=== PATIENT | male | born 1970 | race Caucasian/White ===

== ENCOUNTER → 2018-01-21 10:10 | Outpatient (CLI) | payer MEDICAID, SELFPAY | PROVIDERS: PCP Nurse Practitioner Family; Visit Provider Family Medicine | DX: R69 Illness, unspecified (principal) | CPT/HCPCS: 36415; 80053 ==

== ENCOUNTER → 2018-01-22 18:16 | Outpatient (REF) | payer MEDICAID, SELFPAY ==
[2018-01-22 18:50] LABS: ALT 41 U/L (12-78); AST 24 U/L (15-37); Albumin 3.9 g/dL (3.4-5.0); Alkaline Phosphatase 87 U/L (46-116); Anion Gap 9.8 mmol/L (3-11); BUN 10 mg/dL (7-18); Bilirubin, Total 0.4 mg/dL (0.2-1.0); CO2 28.2 mmol/L (21.0-32.0); CREATININE 0.94 mg/dL (0.70-1.30); Calcium 8.8 mg/dL (8.5-10.1); Chloride 104 mmol/L (98-107); Glucose 104 mg/dL (70-100); Potassium 4.1 mmol/L (3.5-5.1); Sodium 142 mmol/L (136-145)
== END ==
LOC: NCHCN 18:16
PROVIDERS: PCP Nurse Practitioner Family; Visit Provider Family Medicine
DX: R60.0 Localized edema (principal)
CPT/HCPCS: 80053

== ENCOUNTER 2018-05-04 18:48 | Outpatient (REF) | payer MEDICAID, SELFPAY ==
[2018-05-04 19:38] LABS: Absolute Basophil Count 0.02 k/cumm (0.0-0.2); Absolute Eosinophil Count 0.13 k/cumm (0.0-0.7); Absolute Lymphocyte Count 1.53 k/cumm (1.2-3.4); Absolute Monocyte Count 0.46 k/cumm (0.11-0.7); Basophils % 0.4; Eosinophils % 2.7; HCT 39.1 % (40.0-50.0); HGB 13.4 g/dL (13.5-17.5); Lymphocytes % 31.6; Mean Corp. HGB Concentration 34.3 g/dL (32.0-36.0); Mean Corpuscular Hemoglobin 30.4 pg (27.0-33.0); Mean Corpuscular Volume 88.7 fL (80-95); Mean Platelet Volume 11.1 fL (8.0-11.0); Monocytes % 9.5; Neutrophils % 55.8; Platelet Count 270 x1000/uL (130-400); RBC 4.41 m/cumm (4.50-6.00); RBC Distribution Width 12.9 % (11.8-14.1); White Blood Cell Count 4.84 k/cumm (4.4-10.8)
[2018-05-04 19:49] LABS: Anion Gap 8.8 mmol/L (3-11); BUN 15 mg/dL (7-18); CO2 28.2 mmol/L (21.0-32.0); CREATININE 0.85 mg/dL (0.70-1.30); Calcium 9.2 mg/dL (8.5-10.1); Chloride 104 mmol/L (98-107); Glucose 118 mg/dL (70-100); Potassium 3.7 mmol/L (3.5-5.1); Sodium 141 mmol/L (136-145); TSH 1.57 uIU/mL (0.358-3.74)
== END 2018-05-04 19:08 ==
LOC: NCHCN 18:48
PROVIDERS: PCP Nurse Practitioner Family; Visit Provider Nurse Practitioner Family
DX: R42 Dizziness and giddiness (principal)
CPT/HCPCS: 80048; 84443; 85025

== ENCOUNTER 2018-06-18 18:07 | Outpatient (REF) | payer MEDICAID, SELFPAY ==
[2018-06-18 19:02] LABS: Iron 97 ug/dL (50-175); Total Iron Binding Capacity 302 ug/dL (250-450); Transferrin Sat 32 % (20-55)
[2018-06-18 19:15] LABS: Calcium 9.2 mg/dL (8.5-10.1); Ferritin 219 ng/mL (8-388)
[2018-06-21 11:11] LABS: Transferrin 240 mg/dL (201-352)
== END 2018-06-18 18:27 ==
LOC: NCHCN 18:07
PROVIDERS: PCP Nurse Practitioner; Visit Provider Nurse Practitioner Family
DX: R89.9 Unspecified abnormal finding in specimens from other organs, systems and tissues (principal); M62.838 Other muscle spasm
CPT/HCPCS: 82310; 82728; 83540; 83550; 84466

== ENCOUNTER 2018-09-19 17:36 | Emergency (ER) | payer MEDICAID, SELFPAY ==
[2018-09-19 17:50] VITALS: BP 140/93; PULSE 60; RESP 16; TEMP 36.7; O2SAT 97
--- NOTE | 2018-09-19 18:06 | W.ED.GENAD ---
Discharge Plan Disposition Patient Disposition: HOME Condition: Good Discharge Details Chief Complaint: RashLesion Clinical Impression: Cellulitis of anterior lower leg Primary Care Provider: Tamy Kimble ED Provider: Dhruv Quinn Home Meds and New Rx's Prescriptions: New sulfamethoxazole-trimethoprim [Bactrim DS] 800-160 mg tablet 1 tab PO BID 10 Days Qty: 14 RF: 0 Continued fluticasone propion-salmeterol [Advair Diskus] 1 EACH blister with device 1 puff Inhalation BID RF: 0 albuterol sulfate [ProAir HFA] 8.5 GM HFA aerosol inhaler 2 puff Inhalation Q4H PRN RF: 0 epinephrine [EpiPen 2-Reece] 0.3 MG/0.3 ML auto-injector 0.3 mg IM PRN Qty: 2 RF: 0 ibuprofen 800 MG tablet 800 mg PO TID Qty: 270 RF: 3 montelukast [Singulair] 10 MG tablet 10 mg PO DAILY Qty: 90 RF: 3 loratadine 10 MG tablet 10 mg PO DAILY Qty: 90 RF: 3 acetaminophen [Mapap Extra Strength] 500 MG tablet 2 tab PO TID Qty: 0 RF: 0 cetirizine 10 mg Tablet 10 mg PO DAILY RF: 0 cyclobenzaprine 10 mg Tablet 10 mg PO TID PRNRF: 0 C-Pap RF: 0 Discharge Instructions Instructions: Cellulitis (ED) Additional Instructions: Elevate the leg to reduce swelling and discomfort. Take antibiotics as prescribed. No alcohol with this medication. Return for rapidly spreading erythema, involvement of fever or chills, or any other acute concerns. Please follow-up with regular doctor if not improving in 5 days time Medical Decision Making 48-year-old male presents with a day of right pretibial erythema that began after he scratched the area of dry skin. He does not have a fever and is otherwise well-appearing. Consistent with a developing cellulitis. In order to cover for community acquired MRSA I will place him on a course of Bactrim. He understands homecare as well as return precautions. HPI General Mode of arrival: ambulatory. Date/Time Provider Initiated Documentation: 09/19/18 17:53. Limitations to Documentation: no limitations. Information obtained by: patient. History of Present Illness 48 year old M presents to the emergency department with the chief complaint of Right leg pretibial rash since yesterday, described as mild, Quality is described as dull, and is localized to the left and lower extremity. Patient reports no radiation. Patient started experiencing this hour(s) No relieving factors improve symptom(s), No exacerbating factors reported . Patient notes no other symptoms.; denies fever/chills. Patient did receive the following treatments prior to arrival, none Related Data Home Medications Medication Instructions Recorded Confirmed albuterol sulfate [ProAir HFA] 2 puff INHALATION Q4H PRN inhaler 05/25/15 09/19/18 fluticasone propion-salmeterol 1 puff INHALATION BID disk 05/25/15 09/19/18 [Advair Diskus] epinephrine [EpiPen 2-Reece] 0.3 mg IM PRN #2 pen 06/18/15 09/19/18 ibuprofen 800 mg PO TID #270 tab-cap 05/12/16 09/19/18 montelukast [Singulair] 10 mg PO DAILY #90 tab-cap 08/05/16 09/19/18 loratadine 10 mg PO DAILY #90 tab-cap 12/19/16 09/19/18 acetaminophen [Mapap Extra 2 tab PO TID #0 07/02/17 09/19/18 Strength] C-Pap 09/19/18 09/19/18 cetirizine 10 mg PO DAILY 09/19/18 09/19/18 cyclobenzaprine 10 mg PO TID PRN 09/19/18 09/19/18 sulfamethoxazole-trimethoprim 1 tab PO BID 10 Days #14 tab 09/19/18 [Bactrim DS] Previous Rx's Medication Instructions Recorded acetaminophen [Mapap Extra 2 tab PO TID #0 07/02/17 Strength] sulfamethoxazole-trimethoprim 1 tab PO BID 10 Days #14 tab 09/19/18 [Bactrim DS] Allergies Allergy/AdvReac Type Severity Reaction Status Date / Time blueberry Allergy Severe Anaphylaxsi Unverified 09/19/18 17:58 s animal dander AdvReac Unverified 09/19/18 17:58 pepporoni/chorizo Allergy Severe Anaphylaxsi Uncoded 09/19/18 17:58 s dust AdvReac Uncoded 09/19/18 17:58 pollens AdvReac Uncoded 09/19/18 17:58 General Stated Complaint: RashLesion IVONNE: 4 Review of Systems Review of Systems 8 systems reviewed and otherwise - [facility], [facility] Medical History Sleep apnea (Acute) Allergic rhinitis Arthritis Asthma Congenital pes planus Hypertriglyceridemia Obesity Surgical History Partial left medial meniscectomy (02/06/16) r ear surgery Family History Mother COPD (chronic obstructive pulmonary disease) Father Alcohol abuse Tobacco use disorder Allergic rhinitis Sister Mental disorder Son TBI (traumatic brain injury) Autism Son No problems noted. Son Autism Daughter No problems noted. Daughter No problems noted. Other Substance abuse Social History Smoking/Tobacco Use Status: Never Alcohol Intake: never Drug use: Occasionally Substance use type: marijuana Do you feel safe in your relationship?: Yes Exam Narrative Exam Narrative: GEN: awake, alert, oriented 3. Pleasant, well groomed, interactive. HEAD: Normocephalic, atraumatic ENT: Mucous membranes moist, oropharynx unremarkable, External ear exam unremarkable EYES: PERRL, EOMI NECK: Full ROM, no PATTI, no menigismus CHEST/RESP: Nontender, clear to auscultation bilateral, no wheeze/rhonchi/rales CARDIOVASCULAR: RRR, no murmur, rub sherrie. 2+ Rad pulse bilateral ABDOMEN: Soft, nontender, no mass. +Bowel sounds EXT: Full ROM, trace pretibial edema bilaterally. Dried skin bilaterally. The right pretibial area has approximately 5 x 15 cm area of blanching warm and erythematous skin Neuro: Grossly normal neurologic exam, conversant, interactive. Psych: Speech fluent, thoughts congruent, affect normal Course Vital Signs Temperature 36.7 C 09/19/18 17:50 Pulse 60 09/19/18 17:50 Respiratory Rate 16 09/19/18 17:50 Blood Pressure 140/93 H 09/19/18 17:50 Pulse Oximetry 97 09/19/18 17:50 Temperature 36.7 C 09/19/18 17:50 Temperature Source Skin 09/19/18 17:50 Pulse 60 09/19/18 17:50 Respiratory Rate 16 09/19/18 17:50 Respiratory Effort Non-Labored 09/19/18 18:02 Blood Pressure 140/93 H 09/19/18 17:50 Blood Pressure Position Sitting 09/19/18 17:50 Pulse Oximetry 97 09/19/18 17:50 Oxygen Delivery Method Room Air 09/19/18 17:50 Oxygen Flow Rate 0 09/19/18 17:50 Pain Level 1 09/19/18 17:50
--- NOTE | 2018-09-19 18:09 | ED.GENADUL_ITS ---
Discharge Plan Disposition Patient Disposition: HOME Condition: Good Discharge Details Chief Complaint: RashLesion Clinical Impression: Cellulitis of anterior lower leg Primary Care Provider: Tamy Kimble ED Provider: Dhruv Quinn Home Meds and New Rx's Prescriptions: New sulfamethoxazole-trimethoprim [Bactrim DS] 800-160 mg tablet 1 tab PO BID 10 Days Qty: 14 RF: 0 Continued fluticasone propion-salmeterol [Advair Diskus] 1 EACH blister with device 1 puff Inhalation BID RF: 0 albuterol sulfate [ProAir HFA] 8.5 GM HFA aerosol inhaler 2 puff Inhalation Q4H PRN RF: 0 epinephrine [EpiPen 2-Reece] 0.3 MG/0.3 ML auto-injector 0.3 mg IM PRN Qty: 2 RF: 0 ibuprofen 800 MG tablet 800 mg PO TID Qty: 270 RF: 3 montelukast [Singulair] 10 MG tablet 10 mg PO DAILY Qty: 90 RF: 3 loratadine 10 MG tablet 10 mg PO DAILY Qty: 90 RF: 3 acetaminophen [Mapap Extra Strength] 500 MG tablet 2 tab PO TID Qty: 0 RF: 0 cetirizine 10 mg Tablet 10 mg PO DAILY RF: 0 cyclobenzaprine 10 mg Tablet 10 mg PO TID PRNRF: 0 C-Pap RF: 0 Discharge Instructions Instructions: Cellulitis (ED) Additional Instructions: Elevate the leg to reduce swelling and discomfort. Take antibiotics as prescribed. No alcohol with this medication. Return for rapidly spreading erythema, involvement of fever or chills, or any other acute concerns. Please follow-up with regular doctor if not improving in 5 days time Medical Decision Making 48-year-old male presents with a day of right pretibial erythema that began after he scratched the area of dry skin. He does not have a fever and is otherwise well-appearing. Consistent with a developing cellulitis. In order to cover for community acquired MRSA I will place him on a course of Bactrim. He understands homecare as well as return precautions. HPI General Mode of arrival: ambulatory . Date/Time Provider Initiated Documentation: 09/19/18 17:53 . Limitations to Documentation: no limitations . Information obtained by: patient . History of Present Illness 48 year old M presents to the emergency department with the chief complaint of Right leg pretibial rash since yesterday, described as mild, Quality is described as dull, and is localized to the left and lower extremity. Patient reports no radiation. Patient started experiencing this hour(s) No relieving factors improve symptom(s), No exacerbating factors reported . Patient notes no other symptoms.; denies fever/chills. Patient did receive the following t reatments prior to arrival, none Related Data Home Medications Medication Instructions Recorded Confirmed albuterol sulfate [ProAir HFA] 2 puff INHALATION Q4H PRN inhaler 05/25/15 09/19/18 fluticasone propion-salmeterol 1 puff INHALATION BID disk 05/25/15 09/19/18 [Advair Diskus] epinephrine [EpiPen 2-Reece] 0.3 mg IM PRN #2 pen 06/18/15 09/19/18 ibuprofen 800 mg PO TID #270 tab-cap 05/12/16 09/19/18 montelukast [Singulair] 10 mg PO DAILY #90 tab-cap 08/05/16 09/19/18 loratadine 10 mg PO DAILY #90 tab-cap 12/19/16 09/19/18 acetaminophen [Mapap Extra 2 tab PO TID #0 07/02/17 09/19/18 Strength] C-Pap 09/19/18 09/19/18 cetirizine 10 mg PO DAILY 09/19/18 09/19/18 cyclobenzaprine 10 mg PO TID PRN 09/19/18 09/19/18 sulfamethoxazole-trimethoprim 1 tab PO BID 10 Days #14 tab 09/19/18 [Bactrim DS] Previous Rx's Medication Instructions Recorded acetaminophen [Mapap Extra 2 tab PO TID #0 07/02/17 Strength] sulfamethoxazole-trimethoprim 1 tab PO BID 10 Days #14 tab 09/19/18 [Bactrim DS] Allergies Allergy/AdvReac Type Severity Reaction Status Date / Time blueberry Allergy Severe Anaphylaxsi Unverified 09/19/18 17:58 s animal dander AdvReac Unverified 09/19/18 17:58 pepporoni/chorizo Allergy Severe Anaphylaxsi Uncoded 09/19/18 17:58 s dust AdvReac Uncoded 09/19/18 17:58 pollens AdvReac Uncoded 09/19/18 17:58 General Stated Complaint: RashLesion IVONNE: 4 Review of Systems Review of Systems 8 systems reviewed and otherwise - [facility] Medical History Sleep apnea (Acute) Allergic rhinitis Arthritis Asthma Congenital pes planus Hypertriglyceridemia Obesity Surgical History Partial left medial meniscectomy (02/06/16) r ear surgery Family History Mother COPD (chronic obstructive pulmonary disease) Father Alcohol abuse Tobacco use disorder Allergic rhinitis Sister Mental disorder Son TBI (traumatic brain injury) Autism Son No problems noted. Son Autism Daughter No problems noted. Daughter No problems noted. Other Substance abuse Social History Smoking/Tobacco Use Status: Never Alcohol Intake: never Drug use: Occasionally Substance use type: marijuana Do you feel safe in your relationship?: Yes Exam Narrative Exam Narrative: GEN: awake, alert, oriented 3. Pleasant, well groomed, interactive. HEAD: Normocephalic, atraumatic ENT: Mucous membranes moist, oropharynx unremarkable, External ear exam unremarkable EYES: PERRL, EOMI NECK: Full ROM, no PATTI, no menigismus CHEST/RESP: Nontender, clear to auscultation bilateral, no wheeze/rhonchi/rales CARDIOVASCULAR: RRR, no murmur, rub sherrie. 2+ Rad pulse bilateral ABDOMEN: Soft, nontender, no mass. +Bowel sounds EXT: Full ROM, trace pretibial edema bilaterally. Dried skin bilaterally. The right pretibial area has approximately 5 x 15 cm area of blanching warm and erythematous skin Neuro: Grossly normal neurologic exam, conversant, interactive. Psych: Speech fluent, thoughts congruent, affect normal Course Vital Signs Temperature 36.7 C 09/19/18 17:50 Pulse 60 09/19/18 17:50 Respiratory Rate 16 09/19/18 17:50 Blood Pressure 140/93 H 09/19/18 17:50 Pulse Oximetry 97 09/19/18 17:50 Temperature 36.7 C 09/19/18 17:50 Temperature Source Skin 09/19/18 17:50 Pulse 60 09/19/18 17:50 Respiratory Rate 16 09/19/18 17:50 Respiratory Effort Non-Labored 09/19/18 18:02 Blood Pressure 140/93 H 09/19/18 17:50 Blood Pressure Position Sitting 09/19/18 17:50 Pulse Oximetry 97 09/19/18 17:50 Oxygen Delivery Method Room Air 09/19/18 17:50 Oxygen Flow Rate 0 09/19/18 17:50 Pain Level 1 09/19/18 17:50
[2018-09-19] MEDS: Sulfameth/Trimeth DS TAB 1 TAB PO ×2 (18:20)
== END 2018-09-19 18:24 | disposition home or self-care (01) ==
PROVIDERS: Emergency Provider Emergency Medicine; PCP Nurse Practitioner Family
DX: L03.115 Cellulitis of right lower limb (principal)
CPT/HCPCS: 99283

== ENCOUNTER 2018-11-20 22:08 | Emergency (ER) | payer MEDICAID, SELFPAY ==
[2018-11-20 22:16] VITALS: BP 138/97; PULSE 74; RESP 18; TEMP 36.6; O2SAT 97
--- NOTE | 2018-11-20 22:36 | ED.GENADUL_ITS ---
Discharge Plan Disposition Patient Disposition: HOME Condition: Good Discharge Details Chief Complaint: Cellulitis Clinical Impression: Bug bite, Rash Primary Care Provider: Tamy Kimble ED Provider: Ethan Garcia Home Meds and New Rx's Prescriptions: New cephalexin [Keflex] 500 mg capsule 500 mg PO QID 7 Days Qty: 28 RF: 0 No Action fluticasone propion-salmeterol [Advair Diskus] 1 EACH blister with device 1 puff Inhalation BID RF: 0 albuterol sulfate [ProAir HFA] 8.5 GM HFA aerosol inhaler 2 puff Inhalation Q4H PRN RF: 0 epinephrine [EpiPen 2-Reece] 0.3 MG/0.3 ML auto-injector 0.3 mg IM PRN Qty: 2 RF: 0 ibuprofen 800 MG tablet 800 mg PO TID Qty: 270 RF: 3 montelukast [Singulair] 10 MG tablet 10 mg PO DAILY Qty: 90 RF: 3 loratadine 10 MG tablet 10 mg PO DAILY Qty: 90 RF: 3 acetaminophen [Mapap Extra Strength] 500 MG tablet 2 tab PO TID Qty: 0 RF: 0 cetirizine 10 mg Tablet 10 mg PO DAILY RF: 0 cyclobenzaprine 10 mg Tablet 10 mg PO TID PRNRF: 0 C-Pap RF: 0 Discharge Instructions Instructions: Acute Rash (ED) Additional Instructions: Please apply the Benadryl ointment 2-3 times per day. If you notice no improvement with this or you find that the rash is spreading and worsening, please start taking the Keflex. If you notice any worsening of your symptoms, or any new symptoms such as vomiting, diarrhea, fever, chills, shortness of breath, chest pain, numbness, weakness, or fainting , please return immediately to the emergency department for reevaluation. Please follow up with your primary care provider as soon as possible for reassessment and reevaluation. As always, it was a pleasure participating in your medical care today. Referrals: Tamy Kimble [Primary Care Provider] - Medical Decision Making This is a pleasant 48-year-old male who presents with a small rash on his right lower bailey that occurred after a bug bite. Mild redness, well demarcated, not raised. Notably itchy. Diameter is roughly 5 x 3 cm. No signs of abscess or infection. No systemic symptoms whatsoever. Signs and symptoms appear consistent with a mild allergic reaction. We will give topical Benadryl cream here. Because it is the weekend, and the patient has had a history of cellulitis after infections like this, we will give her prescription for Keflex. Recommended to the patient that he hold off on utilizing this unless his symptoms do not improve with the Benadryl or they worsen over time. We discussed red flags which to return the patient understands. I have extensively reviewed the treatment plan and discharge instructions with the patient and their family. I have addressed all patient concerns at this time. The patient and family was made aware of what symptoms to monitor for that would warrant a return to the emergency department. Discussed the plan with the patient and family, they demonstrate verbal understanding and agreement with our assessment and plan at this time. HPI General Date/Time Provider Initiated Documentation: 11/20/18 22:25 . HPI Narrative: This is a 48-year-old male with a past medical history of asthma, reactive airway disease, congenital pes planus, and high cholesterol who presents today for evaluation of rash. Patient states that today he was outdoors and got multiple bug bites. He noticed on his right lower bailey that he developed a small red rash that is notably itchy. He denies fever or chills. He denies any other associated complaints. He denies any history of long trips or surgeries or procedures. He denies any trauma. No other modifying factors. Related Data Home Medications Medication Instructions Recorded Confirmed albuterol sulfate [ProAir HFA] 2 puff INHALATION Q4H PRN inhaler 05/25/15 11/20/18 fluticasone propion-salmeterol 1 puff INHALATION BID disk 05/25/15 11/20/18 [Advair Diskus] epinephrine [EpiPen 2-Reece] 0.3 mg IM PRN #2 pen 06/18/15 11/20/18 ibuprofen 800 mg PO TID #270 tab-cap 05/12/16 11/20/18 montelukast [Singulair] 10 mg PO DAILY #90 tab-cap 08/05/16 11/20/18 loratadine 10 mg PO DAILY #90 tab-cap 12/19/16 11/20/18 acetaminophen [Mapap Extra 2 tab PO TID #0 07/02/17 11/20/18 Strength] C-Pap 09/19/18 11/20/18 cetirizine 10 mg PO DAILY 09/19/18 11/20/18 cyclobenzaprine 10 mg PO TID PRN 09/19/18 11/20/18 cephalexin [Keflex] 500 mg PO QID 7 Days #28 cap 11/20/18 Previous Rx's Medication Instructions Recorded acetaminophen [Mapap Extra 2 tab PO TID #0 07/02/17 Strength] cephalexin [Keflex] 500 mg PO QID 7 Days #28 cap 11/20/18 Allergies Allergy/AdvReac Type Severity Reaction Status Date / Time blueberry Allergy Severe Anaphylaxsi Unverified 09/19/18 17:58 s animal dander AdvReac Unverified 09/19/18 17:58 pepporoni/chorizo Allergy Severe Anaphylaxsi Uncoded 09/19/18 17:58 s dust AdvReac Uncoded 09/19/18 17:58 pollens AdvReac Uncoded 09/19/18 17:58 General Stated Complaint: Cellulitis IVONNE: 4 Review of Systems Review of Systems All systems reviewed & are unremarkable except as noted in HPI and below PFSH Social History Smoking/Tobacco Use Status: Never Alcohol Intake: never Drug use: Occasionally Substance use type: marijuana Do you feel safe in your relationship?: Yes Exam Narrative Exam Narrative: 1.Const: Well-nourished, Well-developed, appearing stated age 2.Eyes: PERRL, no conjunctival injection, and symmetrical lids. 3.ENT: Atraumatic external nose and ears. Moist MM. Neck: Symmetric, trachea midline, No thyromegaly. 4.CVS: +S1/S2, No murmurs or gallops. Peripheral pulses 2+ and equal in all extremities. Brisk capillary refill in all extremities. 5.RESP: Unlabored respiratory effort. Clear to auscultation bilaterally. No wheezes rales or rhonchi 6.GI: Soft, Nontender/Nondistended, No hepatosplenomegaly. No guarding or rebound. 7.MSK: Normocephalic/Atraumatic, Extremities w/o deformity or ttp No cyanosis or clubbing, Normal movement of all extremities 8.Skin: Warm, Dry. There is a small area of erythema on the patient's right lower bailey. It is serpiginous in nature, diameter is roughly 5 cm in width, and 3 cm in height. Notably itchy. No significant calf tenderness, no bleeding or abscess. No other abnormalities. 9.Neuro: sole sewer hand II-XII grossly intact. Sensation grossly intact, no focal neurologic deficits. 10.Psych: (AAO) x3. Appropriate mood and affect Course Vital Signs Temperature 36.6 C 11/20/18 22:16 Pulse 74 11/20/18 22:16 Respiratory Rate 18 11/20/18 22:16 Blood Pressure 138/97 H 11/20/18 22:16 Pulse Oximetry 97 11/20/18 22:16 Temperature 36.6 C 11/20/18 22:16 Temperature Source Temporal Artery Scan 11/20/18 22:16 Pulse 74 11/20/18 22:16 Respiratory Rate 18 11/20/18 22:16 Respiratory Effort 11/20/18 22:16 Blood Pressure 138/97 H 11/20/18 22:16 Blood Pressure Position Sitting 11/20/18 22:16 Pulse Oximetry 97 11/20/18 22:16 Oxygen Delivery Method Room Air 11/20/18 22:16 Oxygen Flow Rate 0 11/20/18 22:16
[2018-11-20] MEDS: diphenhydrAMINE /ZINC ACET CR 30 GM TUBE TP (22:38)
== END 2018-11-20 23:53 | disposition home or self-care (01) ==
PROVIDERS: Emergency Provider Student in an Organized Health Care Education/Training Program; PCP Nurse Practitioner Family
DX: S80.861A Insect bite (nonvenomous), right lower leg, initial encounter (principal); W57.XXXA Bitten or stung by nonvenomous insect and other nonvenomous arthropods, initial encounter
CPT/HCPCS: 99283

== ENCOUNTER 2019-08-01 21:32 | Outpatient (REF) | payer MEDICAID, SELFPAY ==
[2019-08-01 22:10] LABS: Abs Immature Grans 0.02 k/cumm (0.0-0.09); Absolute Basophil Count 0.07 k/cumm (0.0-0.2); Absolute Eosinophil Count 0.27 k/cumm (0.0-0.7); Absolute Lymphocyte Count 1.74 k/cumm (1.2-3.4); Absolute Monocyte Count 0.76 k/cumm (0.11-0.7); Absolute Neutrophil Count 3.25 k/cumm (1.2-6.7); Basophils % 1.1; Eosinophils % 4.4; HCT 40.8 % (40.0-50.0); HGB 13.8 g/dL (13.5-17.5); Immature Grans % 0.3 %; Lymphocytes % 28.5; Mean Corp. HGB Concentration 33.8 g/dL (32.0-36.0); Mean Corpuscular Hemoglobin 29.8 pg (27.0-33.0); Mean Corpuscular Volume 88.1 fL (80-95); Mean Platelet Volume 10.8 fL (8.0-11.0); Monocytes % 12.4; Neutrophils % 53.3; Platelet Count 319 x1000/uL (130-400); RBC 4.63 m/cumm (4.50-6.00); RBC Distribution Width 13.1 % (11.8-14.1); White Blood Cell Count 6.11 k/cumm (4.4-10.8)
[2019-08-01 22:19] LABS: ALT 42 U/L (16-63); AST 23 U/L (15-37); Albumin 4.1 g/dL (3.4-5.0); Alkaline Phosphatase 95 U/L (46-116); Anion Gap 9.8 mmol/L (3-11); BUN 11 mg/dL (7-18); Bilirubin, Total 0.3 mg/dL (0.2-1.0); CO2 29.2 mmol/L (21.0-32.0); CREATININE 0.79 mg/dL (0.70-1.30); Calcium 8.8 mg/dL (8.5-10.1); Calculated LDL 88 mg/dL (<100); Chloride 103 mmol/L (98-107); Cholesterol 170 mg/dL (<200); Glucose 88 mg/dL (74-106); HDL Cholesterol 34 mg/dL (40-60); Potassium 4.1 mmol/L (3.5-5.1); Sodium 142 mmol/L (136-145); Total Protein 7.5 g/dL (6.4-8.2); Triglyceride 242 mg/dL (<150)
== END 2019-08-01 21:52 ==
LOC: NCHCN 21:32
PROVIDERS: PCP Nurse Practitioner Family; Visit Provider Nurse Practitioner Family
DX: Z13.0 Encounter for screening for diseases of the blood and blood-forming organs and certain disorders involving the immune mechanism (principal); Z13.220 Encounter for screening for lipoid disorders; Z13.228 Encounter for screening for other metabolic disorders; Z00.00 Encounter for general adult medical examination without abnormal findings
CPT/HCPCS: 80053; 80061; 85025